=== PATIENT | male | born 1980 | race Caucasian/White ===

== ENCOUNTER 2019-06-29 08:36 | Emergency (ER) | payer BC, MEDICAID ==
--- NOTE | 2019-06-29 09:05 | EDM.PDOC ---
ED HPI GENERAL MEDICAL PROBLEM - General Chief Complaint: Upper Extremity Injury/Pain Stated Complaint: RT SHOULDER INJ Time Seen by Provider: 06/29/19 08:51 Source of Information: Reports: Patient History Limitations: Reports: No Limitations - History of Present Illness INITIAL COMMENTS - FREE TEXT/NARRATIVE: The patient presents with right shoulder pain. He said he was out for a walk last night and he started running in a yard and hit a close line and it flipped him over. He landed mostly on his right shoulder. He had no LOC. He has pain to the right shoulder. He has abrasions to his head and right shoulder. He denies any other injury. Onset: Sudden Duration: Day(s): (Last night) Quality: Reports: Sharp Severity: Moderate Improves with: Reports: Immobilization Worsens with: Reports: Movement Context: Reports: Trauma (fell on his right shoulder) Associated Symptoms: Reports: No Other Symptoms Right Shoulder Pain Score (Numeric/FACES): 10 - Related Data Allergies Allergy/AdvReac Type Severity Reaction Status Date / Time No Known Allergies Allergy Verified 06/29/19 08:49 Home Meds: Home Meds Fluticasone Propionate [Flonase] 2 spr NASBOTH DAILY 06/29/19 [History] Past Medical History HEENT History: Reports: Other (See Below) Other HEENT History: allergies/congestion. Cardiovascular History: Reports: Hypertension Other Cardiovascular History: states no longer takes BP med. Musculoskeletal History: Reports: Fracture - Infectious Disease History Infectious Disease History: Reports: Chicken Pox, Influenza - Past Surgical History Musculoskeletal Surgical History: Reports: Arthroscopic Knee, Shoulder Surgery Social & Family History - Tobacco Use Smoking Status *Q: Never Smoker Second Hand Smoke Exposure: No - Caffeine Use Caffeine Use: Reports: Coffee - Recreational Drug Use Recreational Drug Use: No Review of Systems - Review of Systems Review Of Systems: See Below Constitutional: Reports: No Symptoms Eyes: Reports: No Symptoms Ears: Reports: No Symptoms Nose: Reports: No Symptoms Mouth/Throat: Reports: No Symptoms Respiratory: Reports: No Symptoms Cardiovascular: Reports: No Symptoms GI/Abdominal: Reports: No Symptoms Genitourinary: Reports: No Symptoms Musculoskeletal: Reports: Other (Right shoulder pain) ED EXAM, GENERAL - Physical Exam Exam: See Below Exam Limited By: No Limitations General Appearance: Alert, No Apparent Distress Ears: Normal External Exam Nose: Normal Inspection Head: Other (Abrasion to his forehead and 2 abrasions to the occipital region) Neck: Normal Inspection Respiratory/Chest: No Respiratory Distress, Lungs Clear, Normal Breath Sounds Cardiovascular: Regular Rate, Rhythm, No Edema, No Murmur GI/Abdominal: Soft, Non-Tender, No Organomegaly, No Mass Back Exam: Normal Inspection Extremities: Other (Pain upon palpation to the clavicle and anterior shoulder with an abrasion to that area. Good sensation and pulses distally.) Course - Vital Signs Last Recorded V/S: Last Vital Signs Temp 97.7 F 06/29/19 08:40 Pulse 91 06/29/19 08:40 Resp 20 06/29/19 08:40 BP 120/90 06/29/19 08:40 Pulse Ox 99 06/29/19 08:40 - Orders/Labs/Meds Orders: Active Orders 24 hr Category Date Time Status Shoulder Comp Rt [CR] Stat Exams 06/29/19 09:01 Taken - Re-Assessments/Exams Free Text/Narrative Re-Assessment/Exam: 06/29/19 09:05 I have ordered an x-ray of his right shoulder. 06/29/19 09:38 His x-ray looks good. I will have him follow up with Dr Ureña. Departure - Departure Time of Disposition: 09:40 Disposition: Home, Self-Care 01 Condition: Good Clinical Impression: Abrasions of multiple sites Fall Qualifiers: Encounter type: initial encounter Qualified Code(s): W19.XXXA - Unspecified fall, initial encounter Sprain of right shoulder Qualifiers: Encounter type: initial encounter Shoulder sprain type: unspecified sprain Qualified Code(s): S43.401A - Unspecified sprain of right shoulder joint, initial encounter - Discharge Information *PRESCRIPTION DRUG MONITORING PROGRAM REVIEWED*: Not Applicable *COPY OF PRESCRIPTION DRUG MONITORING REPORT IN PATIENT CON: Not Applicable Referrals: Zechariah Casas MD [Primary Care Provider] - Srikanth Ureña MD [Physician] - 1 Week Forms: ED Department Discharge, ED Return to Work/School Form Additional Instructions: Ice your shoulder for 15 minutes 3 times per day. Take motrin or tylenol for any pain. Follow up with Dr Ureña within a week. Please return if you are worse. Sepsis Event Note - Evaluation Sepsis Screening Result: No Definite Risk - Focused Exam Vital Signs: Vital Signs Temp Pulse Resp BP Pulse Ox 06/29/19 08:40 97.7 F 91 20 120/90 99 Date Exam was Performed: 06/29/19 Time Exam was Performed: 09:38 - My Orders Last 24 Hours: My Active Orders 06/29/19 09:01 Shoulder Comp Rt [CR] Stat - Assessment/Plan Last 24 Hours: My Active Orders 06/29/19 09:01 Shoulder Comp Rt [CR] Stat
--- NOTE | 2019-06-29 10:01 | CR ---
Right shoulder: 3 views of the right shoulder were obtained. Comparison: No prior right shoulder imaging. Glenohumeral joint and acromioclavicular joint appears within normal limits. No fracture, dislocation or other bony abnormality is identified. Impression: 1. No abnormality is identified on 3 view right shoulder study. Diagnostic code #1 This report was dictated in MDT
== END 2019-06-29 09:50 | disposition home or self-care (01) ==
LOC: JD.ED 08:36 → SUPCPDRO 08:36 → JD.ED 09:50
DX: S43.401A Unspecified sprain of right shoulder joint, initial encounter (principal); S00.01XA Abrasion of scalp, initial encounter; I10 Essential (primary) hypertension; W19.XXXA Unspecified fall, initial encounter
CPT/HCPCS: 73030-26-RT; 73030-RT; 99283